=== PATIENT | male | born 1960 | race Caucasian/White ===

== ENCOUNTER 2018-04-07 01:44 | Observation (INO) | END 2018-04-09 19:00 | disposition home or self-care (01) ==

== ENCOUNTER 2018-08-26 08:38 | Emergency (ER) | END 2018-08-26 11:01 | disposition home or self-care (01) ==

== ENCOUNTER 2018-10-17 05:55 | Emergency (ER) | END 2018-10-17 07:55 | disposition home or self-care (01) ==

== ENCOUNTER 2018-12-26 17:11 | Emergency (ER) | payer MEDICARE, OTHER ==
[~2018-12-26] VITALS: Ht 157.5 cm; Wt 65.0 kg
[~2018-12-26 17:11] MED LIST: ASPI-903 PO; ATOR-2 PO; CARV25TA79 PO; ONDA4TAB14 PO; SVL800C PO
[2018-12-26 17:26] VITALS: BP 143/65; PULSE 84; RESP 18; Ht 157.5 cm; Wt 65.0 kg
--- NOTE | 2018-12-26 18:45 | ERD ---
ER Documentation Chief Complaint Chief Complaint TRIP AND FALL WITH NOSE/UPPER LIP/LEFT KNEE ABRASIONS HPI 58-year-old male presents with history trip and fall two hours ago. Patient states he was walking outside and tripped. States he hit his nose, lip and his left knee. Denies current pain. Denies impaired range of motion of the knee, distal numbness, distal numbness or weakness. States he is up-to-date on his tetanus. Denies headache or hitting head. Denies any preceding dizziness or syncope. Denies past medical history. Denies allergies. Denies medications. Denies surgeries. Denies alcohol, tobacco, drug use. Up to date on vaccines. ROS All systems reviewed and are negative except as per history of present illness. Medications Home Meds Active Scripts Bacitracin* (Bacitracin Oint (UD)*) 1 Applic Oint, 1 APPLIC TOP ONCE, #1 TUB APPLY TO Prov:SHAGUFTA ELDER PA-C 12/29/18 Cephalexin* (Keflex*) 500 Mg Capsule, 500 MG PO QID for laceration for 5 Days, #20 CAP Prov:ROMEO MONTALVO 12/26/18 Reported Medications Sevelamer Hcl* (Renagel*) 800 Mg Tablet, 2400 MG PO WITH MEALS, TAB 10/17/18 Carvedilol* (Carvedilol*) 25 Mg Tablet, 25 MG PO BID, #60 TAB 10/17/18 Aspirin* (Aspirin* Chew) 81 Mg Tab.chew, 81 MG PO DAILY, TAB.CHEW 10/17/18 Atorvastatin* (Atorvastatin*) 80 Mg Tablet, 80 MG PO QHS, #30 TAB 10/17/18 Discontinued Scripts Ondansetron (Ondansetron Odt) 4 Mg Tab.rapdis, 4 MG PO Q6H PRN for NAUSEA AND/OR VOMITING, #10 TAB Prov:DORYS GILLETTE MD 10/17/18 Allergies Allergies: Coded Allergies: No Known Allergy (Unverified , 12/30/18) PMhx/Soc History of Surgery: No (Left avfistula placement) Anesthesia Reaction: No Hx Neurological Disorder: No Hx Respiratory Disorders: No Hx Cardiac Disorders: Yes (htn,hyperlipidemia) Hx Psychiatric Problems: No Hx Miscellaneous Medical Probl: Yes (ESRD-HD patient, DM) Hx Alcohol Use: No Hx Substance Use: No Hx Tobacco Use: No Smoking Status: Never smoker FmHx Family History: No diabetes, No coronary disease, No other Physical Exam Vitals Physical Exam Const: No acute distress Head: Atraumatic. Face: Abrasion with mild edema and ecchymosis noted upper lip. No lacerations noted. Teeth are intact. Eyes: Normal Conjunctiva ENT: 1 cm laceration noted on the bridge of the nose. No nasal discharge or bony deformity noted. No foreign bodies noted. Resp: Clear to auscultation bilaterally Cardio: Regular rate and rhythm, no murmurs Ext: No cyanosis, or edema. Abrasion noted on the left knee. No effusion, edema, ecchymosis or bony deformity noted. Not tender to palpation. Distal pulses and sensation intact. Neur: Awake and alert Psych: Normal Mood and Affect Results 24 hrs Current Medications Medications Dose Sig/Harry Start Time Status Last (Trade) Ordered Route PRN Stop Time Admin Dose Reason Admin Lidocaine 10 ml ONCE STAT 12/26/18 DC HCl INJ 18:46 12/26/18 (Lidocaine 18:48 1% (Mdv) 10 ml) Lidocaine 10 ml ONCE STAT 12/26/18 DC (Xylocaine INJ 18:52 12/26/18 1% (Mdv) 20 18:53 ml) Neomycin/ 1 applic ONCE ONCE 12/26/18 DC 12/26/18 Polymyxin/ TOP 20:30 12/26/18 20:50 Bacitracin 20:40 (Neosporin Topical Oint) Procedures/MDM ER Course: Facial CT, suture repair. DIAGNOSTIC IMAGING REPORT Patient: GURPREET HUTCHINSON : 1960 Age: 58 Sex: M [id number] DOS: 12/26/18 1829 Ordering MD: ROMEO MONTALVO Location: [facility] Room/Bed: PROCEDURE: CT facial bones CLINICAL INDICATION: Trauma TECHNIQUE: CT of the facial bones was performed on a multidetector CT scanner utilizing high-resolution axial images. Sagittal, coronal, and multiplanar reformatted images were made. Additionally, 3-D reformatted images were made. The CTDIvol is 29 mGy and the DLP is 625 mGy-cm. Individualized dose optimization technique was used for the performance of this exam. This included 1. Automated exposure control. 2. Adjustment of the mA and/or kV according to the patient's size. 3. Use of iterative reconstruction technique. COMPARISON: None. FINDINGS: There is no facial fracture. The pterygoids are intact. The temporomandibular joints are intact with anatomic alignment. There is no significant soft tissue swelling or hemorrhage. The ocular globes appear normal with no retrobulbar or extra coronal hemorrhage. There is mild mucoperiosteal thickening in the maxillary sinuses. Calcification is seen in the vessels of the base of the brain. The skull base appears normal. No nasal masses seen. There is mild septal deviation to the left. IMPRESSION: No facial fracture. No significant soft tissue swelling or hematoma. Ocular globes intact. Mild chronic sinusitis. .Ace Salazar MD, Date Time Electronically viewed and signed by .Ace Salazar MD, on 12/26/2018 19:53 .A/ CC: ROMEO MONTALVO [id number] Laceration Repair by me: Anesthesia: 1% lidocaine locally Location: Bridge of nose Tendon/Joint/Nerves: No injury Foreign body: None detected after copious irrigation and exploration Technique: Simple Interrupted Sutures Complexity: No subcutaneous sutures/mucosal repair/edge excision Post Closure Length: 2 cm Patient's bleeding was easily controlled in the department and there is no indication of anemia. No evidence of compartment syndrome, neurologic injury, vascular injury, open joint, tendon laceration, or foreign body. Patient is appropriate for outpatient follow up. 48 hour wound check. Scar minimization instructions given. MDM: 58-year-old male presents with history trip and fall two hours ago. Patient states he was walking outside and tripped. States he hit his nose, lip and his left knee. Denies current pain. Denies impaired range of motion of the knee, distal numbness, distal numbness or weakness. States he is up-to-date on his tetanus. Denies headache or hitting head. Denies any preceding dizziness or syncope. CT was performed to rule out open fracture. Results within normal limits. Low suspicion for fracture, foreign body in wound, neurovascular compromise, or infection. Patient to follow-up in 2 days for wound check. Because of location of wound being on the danger triangle of the face and the wound occurring outside, patient was given Rx for Keflex. Patient discharged with strict ER precautions. Patient advised to follow-up with PMD and in two days for wound check. All questions answered at discharge Departure Diagnosis: Primary Impression: Fall Encounter type: initial encounter Qualified Codes: W19.XXXA - Unspecified fall, initial encounter Additional Impressions: Laceration Injury of nose Encounter type: initial encounter Qualified Codes: S09.92XA - Unspecified injury of nose, initial encounter Condition: Stable KATIAROMEO Dec 26, 2018 18:43
[2018-12-26] MEDS ORDERED: LIDOCAINE 1% (MDV) 10 ML INJ INJ STA (18:46)
[2018-12-26] MEDS ORDERED: LIDOCAINE 1% (MDV) 20 ML INJ INJ STA (18:52)
[2018-12-26] MEDS ORDERED: NEOMYC/POLYMYX/BACIT 30 GM OINT TOP ONE (20:30)
[2018-12-26] MEDS ORDERED: CEPH-443 PO (20:42)
[2018-12-29] MEDS ORDERED: BACITUD TOP (09:54)
== END 2018-12-26 21:07 | disposition home or self-care (01) ==
LOC: FTE 17:11
DX: S01.21XA Laceration without foreign body of nose, initial encounter (principal); S80.212A Abrasion, left knee, initial encounter; E11.9 Type 2 diabetes mellitus without complications; I10 Essential (primary) hypertension; W01.0XXA Fall on same level from slipping, tripping and stumbling without subsequent striking against object, initial encounter; Y92.9 Unspecified place or not applicable; Z79.82 Long term (current) use of aspirin
CPT/HCPCS: 70486

== ENCOUNTER 2019-01-12 12:05 | Emergency (ER) | payer MEDICARE, OTHER ==
[~2019-01-12] VITALS: Wt 81.0 kg
[~2019-01-12 12:05] MED LIST changes: +BACITUD TOP; +CEPH-443 PO; -ONDA4TAB14 PO
[2019-01-12 12:07] VITALS: BP 132/71; PULSE 78; RESP 18
--- NOTE | 2019-01-12 12:37 | ERD ---
ER Documentation Chief Complaint Chief Complaint SUTURE REMOVAL HPI 58-year-old male presents for evaluation of suture removal. Suffered a fall about 15 days ago, at that time the sutures were placed, he had imaging that was negative for fracture or other injury. Since then he has been putting topical ointment, no fever, no purulent drainage. ROS All systems reviewed and are negative except as per history of present illness. Medications Home Meds Active Scripts Bacitracin* (Bacitracin Oint (UD)*) 1 Applic Oint, 1 APPLIC TOP ONCE, #1 TUB APPLY TO Prov:SHAGUFTA ELDER PA-C 12/29/18 Cephalexin* (Keflex*) 500 Mg Capsule, 500 MG PO QID for laceration for 5 Days, #20 CAP Prov:ROMEO MONTALVO 12/26/18 Reported Medications Sevelamer Hcl* (Renagel*) 800 Mg Tablet, 2400 MG PO WITH MEALS, TAB 10/17/18 Carvedilol* (Carvedilol*) 25 Mg Tablet, 25 MG PO BID, #60 TAB 10/17/18 Aspirin* (Aspirin* Chew) 81 Mg Tab.chew, 81 MG PO DAILY, TAB.CHEW 10/17/18 Atorvastatin* (Atorvastatin*) 80 Mg Tablet, 80 MG PO QHS, #30 TAB 10/17/18 Allergies Allergies: Coded Allergies: No Known Allergy (Unverified , 01/12/19) PMhx/Soc History of Surgery: No Anesthesia Reaction: No Hx Neurological Disorder: No Hx Respiratory Disorders: No Hx Cardiac Disorders: Yes (HTN, HLD) Hx Psychiatric Problems: No Hx Miscellaneous Medical Probl: Yes (HTN, hyperlipidemia, DM, ESRD-HD) Hx Alcohol Use: No Hx Substance Use: No Hx Tobacco Use: No Physical Exam Vitals Vital Signs Date Temp Pulse Resp B/P (MAP) Pulse Ox O2 O2 Flow FiO2 Time Delivery Rate 01/12/19 98.1 78 18 132/71 99 12:07 (91) Physical Exam Const: No acute distress Head: 2 cm horizontal laceration over the nasal bridge, with 5 sutures, wound is clean dry and intact, there is no bleeding or purulent drainage expressed. Eyes: Normal Conjunctiva ENT: Normal External Ears, Nose and Mouth. Neck: Full range of motion. No meningismus. Resp: Clear to auscultation bilaterally Cardio: Regular rate and rhythm, no murmurs Abd: Soft, non tender, non distended. Normal bowel sounds Skin: No petechiae or rashes Back: No midline or flank tenderness Ext: No cyanosis, or edema Neur: Awake and alert Psych: Normal Mood and Affect Procedures/MDM Suture Removal by me: Sutures removed with tweezers and scissors without incident. Wound shows no evidence of infection, foreign body, neurologic injury, vascular injury, open joint or tendon laceration. Patient to follow up PRN. Departure Diagnosis: Primary Impression: Encounter for removal of sutures Condition: ALFONZO Kaufman MD Jan 12, 2019 12:37
== END 2019-01-12 13:26 | disposition home or self-care (01) ==
LOC: FTE 12:05
DX: Z48.02 Encounter for removal of sutures (principal)
CPT/HCPCS: 99281

== ENCOUNTER 2019-06-01 18:25 | Emergency (ER) | payer MEDICARE, OTHER ==
[~2019-06-01] VITALS: Ht 162.6 cm; Wt 50.0 kg
[2019-06-01 18:25] VITALS: BP 130/67; PULSE 86; RESP 20; Ht 162.6 cm; Wt 50.0 kg
--- NOTE | 2019-06-01 20:22 | ERD ---
ER Documentation Chief Complaint Chief Complaint Abraision to rt eye back of head s/p fall no ko. HPI Patient is a 58-year-old male who presents after a slip and fall. The patient was sitting on the side of the bed in a nursing facility and slipped and fell and hit the right side of his head. He has an abrasion to the right forehead. He has no loss of consciousness. He had no complaints at this time and he is acting normally and answering all questions. He was brought in by ambulance. ROS All systems reviewed and are negative except as per history of present illness. Medications Home Meds Active Scripts Bacitracin* (Bacitracin Oint (UD)*) 1 Applic Oint, 1 APPLIC TOP ONCE, #1 TUB APPLY TO Prov:SHAGUFTA ELDER PA-C 12/29/18 Cephalexin* (Keflex*) 500 Mg Capsule, 500 MG PO QID for laceration for 5 Days, #20 CAP Prov:ROMEO MONTALVO 12/26/18 Reported Medications Sevelamer Hcl* (Renagel*) 800 Mg Tablet, 2400 MG PO WITH MEALS, TAB 10/17/18 Carvedilol* (Carvedilol*) 25 Mg Tablet, 25 MG PO BID, #60 TAB 10/17/18 Aspirin* (Aspirin* Chew) 81 Mg Tab.chew, 81 MG PO DAILY, TAB.CHEW 10/17/18 Atorvastatin* (Atorvastatin*) 80 Mg Tablet, 80 MG PO QHS, #30 TAB 10/17/18 Allergies Allergies: Coded Allergies: No Known Allergy (Unverified , 01/12/19) PMhx/Soc History of Surgery: No Anesthesia Reaction: No Hx Neurological Disorder: No Hx Respiratory Disorders: No Hx Cardiac Disorders: Yes (HTN, HLD) Hx Psychiatric Problems: No Hx Miscellaneous Medical Probl: Yes (HTN, hyperlipidemia, DM, ESRD-HD) Hx Alcohol Use: No Hx Substance Use: No Hx Tobacco Use: No FmHx Family History: No diabetes Physical Exam Vitals Vital Signs Date Temp Pulse Resp B/P (MAP) Pulse Ox O2 O2 Flow FiO2 Time Delivery Rate 06/01/19 98.2 86 20 130/67 100 18:25 (88) Physical Exam Const: No acute distress Head: Two abrasions to the right forehead without laceration Eyes: Normal Conjunctiva ENT: Normal External Ears, Nose and Mouth. Neck: Full range of motion. No meningismus. Resp: Clear to auscultation bilaterally Cardio: Regular rate and rhythm, no murmurs Abd: Soft, non tender, non distended. Normal bowel sounds Skin: 2 abrasions to the right forehead without laceration Back: No midline or flank tenderness Ext: Left lower extremity previous amputation Neur: Awake and alert Psych: Normal Mood and Affect Procedures/MDM Patient is a 58-year-old male who presents with a slip and fall and abrasion to the head. I believe the risk of doing a CT scan of the brain outweigh the benefits at this time. He is awake alert and answering questions properly. He denies loss of consciousness or vomiting. The patient will be discharged but can follow-up with the primary doctor within 1 week. He can return for any worsening symptoms. He would be discharged by ambulance back to his nursing facility. Departure Diagnosis: Primary Impression: Abrasion Additional Impression: Fall Encounter type: initial encounter Qualified Codes: W19.XXXA - Unspecified fall, initial encounter Condition: Fair Patient Instructions: Abrasion, Fall, Mechanical Referrals: Your doctor Additional Instructions: Llame al doctor nomcleo dye (Referral Sources) MAANA y nubia nidia YAJAIRA PARA DENTRO DE NIDIA SEMANA. Dgale a la secretaria que nosotros le instruimos hacer esta yajaira.Avise o llame si walter condicin se empeora antes de la yajaira. DORYS GILLETTE MD Jun 01, 2019 20:22
== END 2019-06-01 18:42 | disposition home or self-care (01) ==
LOC: E/R 18:25
DX: S00.81XA Abrasion of other part of head, initial encounter (principal); E11.22 Type 2 diabetes mellitus with diabetic chronic kidney disease; N18.6 End stage renal disease; I12.0 Hypertensive chronic kidney disease with stage 5 chronic kidney disease or end stage renal disease; W01.198A Fall on same level from slipping, tripping and stumbling with subsequent striking against other object, initial encounter; Y92.9 Unspecified place or not applicable; Z99.2 Dependence on renal dialysis; Z79.82 Long term (current) use of aspirin
CPT/HCPCS: 99282